=== PATIENT | male | born 1975 | race Caucasian/White ===

== ENCOUNTER 2024-02-14 13:07 | Outpatient (AMB) | payer OTHER, SELFPAY ==
--- NOTE | 2024-02-14 13:08 | A.OFFVIS_ITS ---
Vital Signs 02/14/24 13:15 Height 6 ft 2 in Weight 324 lb BMI 41.6 Pulse 92 Pulse Source Pulse Oximeter Temp 97.9 F Temp Source Oral Pulse Oximetry (%) 97 Oxygen Delivery Method Room Air Intake Visit Reasons: REFF.DR Yeboah,Positive QuantiFERON Allergies No Known Allergies Allergy (Verified 02/14/24 13:16) HPI HPI REFF.DR Yeboah,Positive QuantiFERON: Details: He has colitis. He has been on mesalamine. Dr Yeboah of is going to start him on biologics. He has positive interferon tubercular test. He has never had tuberculosis and reports negative skin test in past. 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 CXR reported negative. He has no hemoptysis,weight loss,foreign travel or exposure and no lymphadenopathy or fevers. [facility] Medical History Positive QuantiFERON-TB Gold test Review of Systems Const All systems reviewed & are unremarkable except as noted in HPI and below Physical Exam Vital Signs: Last Vital Signs Temp 97.9 F 02/14/24 13:15 Pulse 92 02/14/24 13:15 Pulse Ox 97 02/14/24 13:15 Oxygen Delivery Method Room Air 02/14/24 13:15 BMI result Body Mass Index 41.6 Const General: cooperative Orientation/consciousness: patient oriented x3 HEENT Head: Yes normal to inspection Mouth: Normal oral and palatal mucosa present Eyes General: appearance normal, both eyes and all related structures Pupils: Equal, round and reactive pupils present Resp Effort & Inspection: normal respiratory effort Cardio Rate: regular rate Rhythm: regular rhythm GI Palpation (GI): Soft to palpation and nontender General: Yes no CVA tenderness Back/Spine/Pelvis Back: no CVA tenderness Skin General skin exam: no rashes or lesions noted Neuro General: patient oriented x3 Cranial nerves: Yes CN's II-XII intact bilaterally and Yes Equal, round and reactive pupils present Extrem General: Yes normal to inspection Psych Appearance: grossly normal Assessment & Plan Assessment & Plan (1) Positive QuantiFERON-TB Gold test: Comment: Positive tubercular interferon blood test. He has no risk and reported past negative TB skin test and CXR. Code(s): R76.12 - Nonspecific reaction to cell mediated immunity measurement of gamma interferon antigen response without active tuberculosis Category: Medical Plan: I did recheck T spot blood test today which is negative. No contraindication seen to antibody therapy as likely false positive prior test. As with any patients watch for symptoms of infection with fever or lymphadenopathy or hemoptysis but as of now no contraindication seen and false positive tests are not uncommon. Orders: Orders T Spot TB 02/14/24 R76.12 - Nonspecific reaction to cell mediated immunity measurement of gamma interferon antigen response without active tuberculosis HIV Ab/Ag 02/14/24 R76.12 - Nonspecific reaction to cell mediated immunity measurement of gamma interferon antigen response without active tuberculosis Hepatitis C Antibody 02/14/24 R76.12 - Nonspecific reaction to cell mediated immunity measurement of gamma interferon antigen response without active tuberculosis Coding Level of Care Code New Pt Level 3 (93107) Diagnoses Positive QuantiFERON-TB Gold test R76.12
--- OUTSIDE RECORDS SUMMARY | 2024-02-14 13:08 | XMS_ITS ---
Author Organization [facility] Address [address] [place], [place] [id number] Care Team Providers Care Fast Food Supervisor Name Role Phone Vikas Victoria Primary Care Provider Unavailable Renard Casillas Unavailable [phone] Ankur Nunez Unavailable Unavailable Ayesha Silva Unavailable [phone] ALLERGIES No Known Allergies REASON FOR VISIT 3 Month RUBEN Follow up W/ E&C- non compliant MEDICATIONS Medication SIG (Take, Route, Frequency, Duration) Notes Start Date End Date Status hydrOXYzine HCl 10 MG 1 tablet as needed Orally Once a day Active FLUoxetine HCl 10 MG 1 capsule Orally Once a day for 90 days Active Albuterol Sulfate HFA 108 (90 Base) MCG/ACT 1 puff as needed Inhalation every 4 hrs for 30 days Active Mesalamine ER 0.375 GM Oral for 90 4 caps daily Active ARIPiprazole 30 MG 1 tablet Orally Once a day for 90 days Active PROzac 40 MG 1 capsule in the morning 10 at night Orally Once a day total 50 mg Active oxyBUTYnin Chloride ER 10 MG 1 tablet Orally Once a day Active LORazepam 2 MG 1 tablet at bedtime as needed Orally Once a day as needed Active Rosuvastatin Calcium 20 MG 1 tablet Orally Once a day for 30 day(s) Active CPAP* DX: RUBEN G47.33 as directed SETTINGS: 16cm/H2O SIG DATE: During sleep nightly for the treatment of sleep apnea for lifetime Active Atorvastatin Calcium 20 MG 1 tablet Orally Once a day restarting 10/12/2022 Active VITAL SIGNS Weight 315 lbs 01/24/2024 Blood pressure systolic 100 mm Hg 01/24/20 24 Blood pressure diastolic 78 mm Hg 024 Heart Rate 70 /min 01/24/2024 Respiratory Rate 16 /min 01/24/2024 Height 68 in 01/24/2024 BMI 47.89 kg/m2 01/24/2024 Encounters Encounter Location Date Provider Diagnosis [facility] [address] [place] [address] 01/24/2024 Ayesha Silva Obstructive sleep apnea (adult) (pediatric) G47.33 ; Hypersomnia G47.10 ; Other obesity due to excess calories E66.09 ; Mild intermittent asthma, unspecified whether complicated J45.20 and Shortness of breath R06.02 ASSESSMENTS Encounter Date Diagnosis Assessment Notes Treatment Notes Treatment Clinical Notes 01/24/2024 Obstructive sleep apnea (adult) (pediatric) (ICD-10 - G47.33) We discussed the risks involved in untreated RUBEN. He understands. We discussed strategies to help him remember to use CPAP every night 01/24/2024 Hypersomnia (ICD-10 - G47.10) Should improve with management of RUBEN. Advised not to drive when sleepy . 01/24/2024 Other obesity due to excess calories (ICD-10 - E66.09) The importance of weight control/loss was emphasized. This improves (and occasionally cures) sleep apnea. It also benefits other health concerns. Vice Versa, weight gain will worsen sleep apnea. 01/24/2024 Mild intermittent asthma, unspecified whether complicated (ICD-10 - J45.20) Continue albuterol prn 01/24/2024 Shortness of breath (ICD-10 - R06.02) As above PLAN OF TREATMENT Medication Medication Name Sig Start Date Stop Date Notes Albuterol Sulfate HFA 108 (9 0 Base) MCG/ACT 1 puff as needed Inhalation every 4 hrs for 30 days CPAP* DX: RUBEN G47.33 as directed SETTING S: 16cm/H2O SIG DATE: During sleep nightly for the treatment of sleep apnea for lifetime Treatment Notes Assessment Notes Obstructive sleep apnea (adult) (pediatr ic) We discussed the risks involved in untreated RUBEN. He understands. We discussed strategies to help him remember to use CPAP every night Hypersomnia Should improve with management of RUBEN. Advised not to drive when sleepy . Other obesity due to excess calories The importance of weight control/loss was emphasized. This improves (and occasionally cures) sleep apnea. It also benefits other health concerns. Vice Versa, weight gain will worsen sleep apnea. Mild intermittent asthma, un specified whether complicated Continue albuterol prn Shortness of breath As above Next Appt Details Follow Up: 2-3 weeks with CP AP, Reason: Provider Name:Ayesha de la rosa, 02/28/2024 03:00:00 PM, [address] [place], [address], Progress Notes * Denny STANTONDOB: [birth year] (48 yo M)Acc No.[id number]:01/24/2024 Patient:??STEPHEN Denny Provider:??Ayesha Silva NP :1975?Age:48 Y?Sex:Rosemarie le Date:01/24/2024 Address:[address] [place], [place] [id number] Pcp:Samia Erickson Subjective: * Chief Complaints: * ?3 Month RUBEN Follow up W/ E&C- non compliant * HPI: ?Obstructive Sleep Apnea:?48 year old male presents with c/o Obstructive sleep apnea??Diagnosed in 2014 but had his machine taken away due to non compliance in the past. Today he's here for a follow up and still has not used his machine in several months. He has tried a couple different masks and finds them comfortable but admits that he forgets to put it on most nights. At last visit I ordered him the airfit f30i which he finds comfortable. I adjusted the pressure at last visit but he has not tried it yet.?Symptoms including??snoring, daytime somnolence, awakening not feeling refreshed in the morning.??Naps??are denied.??The patient usually goes to bed at??9-10 PM and usually arises at 6-7 AM, he wakes up 1-2 times per night to use the bathroom, naps are denied.??The Nichols score today??completed by the patient is 0.??The patient denies??anxiety, excess light in the room, excess noise in the bedroom, knowledge of periodic leg movements during sleep, seizures during sleep, sleep talking, sleep walking.?Nichols sleepiness scale:?Sitting and reading??0.??Watching TV??0.??Sitting inactive in a public place??0.??Being a passenger in car longer than 1 hour??0.??Lying down in the afternoon??0.??Sitting and Talking with someone??0.??Sitting quietly after lunch (no alcohol)??0.??Stopped for a few minutes in traffic while driving??0.??Total??0.?? * ROS:?Follow up ROS 2:?General??No fever, chills, sweats, No excessive fatigue, Appetite good, weight stable.??EENT??No change in vision, No ocular discharge or pruritis, No change in hearing, Sense of smell/taste intact, No sore throat.??Cardiac??No chest pain, pressure or tightness, No extremity edema, No lightheadedness, No orthopnea or PND.??Respiratory??Per HPI.??GI??No abdominal pain, nausea, vomiting or diarrhea. No sx of KELLY.??Musculoskeletal??No acute arthralgias or myalgias.??Dermatologic??No rash, eczema or urticaria.??Neurologic??No headache or dizziness.??Psychiatric??No complaint of depression or anxiety.??Hematology/Lymph??No swollen glands, No easy bruising.??Actively smoking??No.?All other 12 systems reviewed and negative other than above. * Medical History:?? * Surgical History:??Tonsillec jewel/Adenoidectomy * Hospitalization/Major Diagno stic Procedure:?? * Family History:??Father: dec eased, Emphysema, diagnosed with Chronic obstructive pulmonary disease (COPD).??Mother: alive, unknown, diagnosed with Unknown Medical History.??Siblings: alive, diagnosed with Diabetes mellitus.?? Positive for diabetes mellitus. Half brother and half sister. * Social History:??Marital sta tus: Single, Single, Lives independently,. Children: None. Siblings: Brother, Sister,. Occupation: [employer]. Tobacco??Smoking History:??nonsmoker,??Additional Findings: Tobacco Non-User??Does not use smokeless tobacco.??Alcohol: None,. * Medications:??TakingAlbutero l Sulfate HFA 108 (90 Base) MCG/ACT Aerosol Solution 1 puff as needed Inhalation every 4 hrs Atorvastatin Calcium 20 MG Tablet 1 tablet Orally Once a day , Notes to Pharmacist: restarting 10/12/2022LORazepam 2 MG Tablet 1 tablet at bedtime as needed Orally Once a day , Notes to Pharmacist: as neededRosuvastatin Calcium 20 MG Tablet 1 tablet Orally Once a day PROzac 40 MG Capsule 1 capsule in the morning 10 at night Orally Once a day , Notes to Pharmacist: total 50 mgoxyBUTYnin Chloride ER 10 MG Tablet Extended Release 24 Hour 1 tablet Orally Once a day hydrOXYzine HCl 10 MG Tablet 1 tablet as needed Orally Once a day FLUoxetine HCl 10 MG Capsule 1 capsule Orally Once a day Mesalamine ER 0.375 GM Capsule Extended Release 24 Hour Oral , Notes to Pharmacist: 4 caps dailyARIPiprazole 30 MG Tablet 1 tablet Orally Once a day Medication List reviewed and reconciled with the patientTaking Albuterol Sulfate HFA 108 (90 Base) MCG/ACT Aerosol Solution 1 puff as needed Inhalation every 4 hrs Taking Atorvastatin Calcium 20 MG Tablet 1 tablet Orally Once a day , Notes to Pharmacist: restarting 10/12/2022Taking LORazepam 2 MG Tablet 1 tablet at bedtime as needed Orally Once a day , Notes to Pharmacist: as neededTaking Rosuvastatin Calcium 20 MG Tablet 1 tablet Orally Once a day Taking PROzac 40 MG Capsule 1 capsule in the morning 10 at night Orally Once a day , Notes to Pharmacist: total 50 mgTaking oxyBUTYnin Chloride ER 10 MG Tablet Extended Release 24 Hour 1 tablet Orally Once a day Taking hydrOXYzine HCl 10 MG Tablet 1 tablet as needed Orally Once a day Taking FLUoxetine HCl 10 MG Capsule 1 capsule Orally Once a day Taking Mesalamine ER 0.375 GM Capsule Extended Release 24 Hour Oral , Notes to Pharmacist: 4 caps dailyTaking ARIPiprazole 30 MG Tablet 1 tablet Orally Once a day Medication List reviewed and reconciled with the patient * Allergies:??N.K.D.A.no[Aller gies Verified] Objective: * Vitals:??Wt: 315, BP:100/78, HR: 70, RR: 16, O2 sat: 95%RA, Ht: 68, BMI:47.89. * Examination: ?General Physical Exam: ?General Appearance:??Alert and oriented x 3, in no acute distress.??Eyes??EOMI, PERRL, Conjunctiva not injected, Sclera not icteric.??Nose??No significant mucosal congestion (normal mucosa). No nasal discharge. No nasal polyps seen.??Oral cavity??No significant abnormalities appreciated.??The hypopharynx??Normal in appearance; no erythema or exudate; , Mallampati Class IV.??Neck??Supple, JVP is normal, no masses, thyroid is normal.??Chest??Normal shape and expansion with respiration.??Lungs??Respiratory rate is normal,?Breath sounds are clear bilaterally, but diminished globally.??Heart:??Normal rate, regular rhythm, Normal S1, normal S2, no murmurs, rub, gallop.??Extremities??No digital clubbing, acrocyanosis or peripheral edema.??Lymph??No cervical adenopathy.??Skin:??Warm and dry, No rash on partial skin exam.??Neuro:??A & O x 3, Grossly nonfocal motor and sensory exam.?Data: ?Pulmonary Function Tests??PFT completed 08/21/2023 showed FVC 4.26L (153% pred), FEV1 3.61L (159%pred), FEV1/FVC 85%, there was good bronchodilator response.??PSG?? 10/10/13 - Sleep Efficiency 87.2%. Sleep onset latency 25 min. REM Sleep onset latency 370 min. Sleep Stages: Stage 1 - 18.1%, Stage 2 - 70.4%, Slow Wave - 5.2%, REM - 6.3%. Overall AHI 62.4/hr. Overall RDI 69/hr. Oximetry - low SpO2 78%, SpO2 < 88% for 65.2%. ?Home sleep study from 09/02/14 shows mild to moderate, positional sleep apnea with an AHI of 11/hr, RDI of 23/hr and an Sp02 Valeriano of 83.9% with a mean Sp02 of 93.6%. Snoring was recorded 32% of the time. ?PSG from 05/24/15 was personally reviewed by me and shows moderate RUBEN with AHI of 17 ?PSG split night completed 04/21/18 showed optimal pressure at 16cm/H2O.?For today's visit I spent 30 minutes for preparation, reviewing of the record and face to face contact. Assessment: * Assessment: 1.??Obstructive sleep apnea (adult) (pediatric) - G47.33 (Primary)??2.??Hypersomnia - G47.10??3.??Other obesity due to excess calories - E66.09??4.??Mild intermittent asthma, unspecified whether complicated - J45.20??5.??Shortness of breath - R06.02?? Plan: * Treatment: 2.??Hypersomnia?? Notes:Should improve with management of RUBEN. Advised not to drive when sleepy .? 3.??Other obesity due to exc ess calories?? Notes:The importance of weight control/loss was emphasized. This improves (and occasionally cures) sleep apnea. It also benefits other health concerns. Vice Versa, weight gain will worsen sleep apnea.? 4.??Mild intermittent asthma , unspecified whether complicated?? Notes: Continue albuterol prn? 5.??Shortness of breath?? Continue Albuterol Sulfate HFA Aerosol Solution, 108 (90 Base) MCG/ACT, 1 puff as needed, Inhalation, every 4 hrs, 30 days, 1, Refills 5.? Notes: As above? * Procedure Codes:?? * Preventive Medicine:?Counseling:??DIET -??Above Normal BMI Follow-up??Giving encouragement to exercise,??BMI Management??Yes.?? * Follow Up:??2-3 weeks with C YOVANI * Images: * Sign off status: Completed true * Provider:??Ayesha Silva NP Date:??01/14 History and Physical Notes * HPI (History of Present Illness) Category Sub-Category Detail Notes Obstructive Sleep Apnea Symptoms including snori ng, daytime somnolence, awakening not feeling refreshed in the morning The Nichols score today completed by the patient is 0 The patient usually goes to bed at 9-10 PM and usually arises at 6-7 AM, he wakes up 1-2 times per night to use the bathroom, naps are denied The patient denies anxiety, excess ligh t in the room, excess noise in the bedroom, knowledge of periodic leg movements during sleep, seizures during sleep, sleep talking, sleep walking Obstructive sleep apnea Diagnosed in but had his machine taken away due to non compliance in the past. Today he's here for a follow up and still has not used his machine in several months. He has tried a couple different masks and finds them comfortable but admits that he forgets to put it on most nights. At last visit I ordered him the airfit f30i which he finds comfortable. I adjusted the pressure at last visit but he has not tried it yet Naps are denied Nichols sleepiness scale Sitting and reading 0 Watching TV 0 Sitting inactive in a public place 0 Being a passenger in car longer than 1 h our 0 Lying down in the afternoon 0 Sitting and Talking with someone 0 Sitting quietly after lunch (no alcohol) 0 Stopped for a few minutes in traffic whi le driving 0 Total 0 Examination Category Sub-Category Detail Notes General Physical Exam Eyes EOMI, PERR L, Conjunctiva not injected, Sclera not icteric Neck Supple, JVP is franco l, no masses, thyroid is normal Heart: Normal rate, regular rhythm, Normal S1, normal S2, no murmurs, rub, gallop Lungs Respiratory rate is normal, Breath sounds are clear bilaterally, but diminished globally General Appearance: Alert and oriented x 3, in no acute distress Oral cavity No significant abnor malities appreciated Chest Normal shape and exp ansion with respiration Extremities No digital clubbing, acrocyanosis or peripheral edema Ears Nose No significant mucos al congestion (normal mucosa). No nasal discharge. No nasal polyps seen The hypopharynx Normal in appearance ; no erythema or exudate; , Mallampati Class IV Sinuses Skin: Warm and dry, No steevn h on partial skin exam Neuro: A & O x 3, Grossly n onfocal motor and sensory exam Vascular: Abdomen Lymph No cervical adenopat hy Data Pulmonary Function Tests PFT com pleted 08/21/2023 showed FVC 4.26L (153% pred), FEV1 3.61L (159%pred), FEV1/FVC 85%, there was good bronchodilator response PSG 10/10/13 - Sleep Efficiency 87.2%. Sleep onset latency 25 min. REM Sleep onset latency 370 min. Sleep Stages: Stage 1 - 18.1%, Stage 2 - 70.4%, Slow Wave - 5.2%, REM - 6.3%. Overall AHI 62.4/hr. Overall RDI 69/hr. Oximetry - low SpO2 78%, SpO2 < 88% for 65.2%. Home sleep study from 09/02/14 shows mild to moderate, positional sleep apnea with an AHI of 11/hr, RDI of 23/hr and an Sp02 Valeriano of 83.9% with a mean Sp02 of 93.6%. Snoring was recorded 32% of the time. PSG from 05/24/15 was personally reviewed by me and shows moderate RUBEN with AHI of 17 PSG split night completed 04/21/18 showed optimal pressure at 16cm/H2O
--- OUTSIDE RECORDS SUMMARY | 2024-02-14 13:08 | XMS_ITS ---
Author Organization [facility] Address [address] [place], [place] [id number] Care Team Providers Care Scaffold Erector Name Role Phone Vikas Victoria Primary Care Provider Unavailable Renard Casillas Unavailable [phone] Ankur Nunez Unavailable Unavailable REASON FOR VISIT Follow up Encounters Encounter Location Date Provider Diagnosis [facility] [address] [place] [address] 01/24/2024 Renard Katiei PLAN OF TREATMENT Next Appt Details Provider Name:Ayesha de la rosa, 02/28/2024 03:00:00 PM, [address] [place], [address], Progress Notes * Denny STANTONDOB: [birth year] (48 yo M)Acc No.[id number]:01/24/2024 Patient:??Denny STANTON :1975?Age:48 Y?Sex:Radha rodriguez Address:[address] [place] [address], [address] * true * Date:??
--- OUTSIDE RECORDS SUMMARY | 2024-02-14 13:09 | XMS_ITS | Patient Health Record ---
Author Organization [facility] Address [address] [place], [place] [address] Care Team Providers Care Cement Despatch Operator Name Role Phone Vikas Victoria Primary Care Provider Unavailable Renard Casillas Unavailable [phone] Ankur Nunez Unavailable Unavailable Ayesha Silva Unavailable [phone] ALLERGIES No Known Allergies REASON FOR REFERRAL No Information MEDICATIONS Medication SIG (Take, Route, Frequency, Duration) [...] Once a day for 30 day(s) Active Atorvastatin Calcium 20 MG 1 tablet Orally Once a day restarting 10/12/2022 Active Albuterol Sulfate HFA 108 (90 Base) MCG/ACT 1 puff as needed Inhalation every 4 hrs for 30 days Active CPAP* DX: RUBEN G47.33 as directed SETTINGS: 16cm/H2O SIG DATE: During sleep nightly for the treatment of sleep apnea for lifetime Active Mesalamine ER 0.375 GM Oral for 90 4 caps daily Active ARIPiprazole 30 MG 1 tablet Orally Once a day for 90 days Active IMMUNIZATIONS Vaccine Route Administration Date Status Comme nts COVID-19 Pfizer Unknown 12/02/2020 Administered COVID-19 Pfizer Unknown 12/21/2020 Administered Flucelvax Quadrivelant (Commerical) Unknown 04/06/2018 Administered SOCIAL HISTORY Sex Assigned At : Social History Observation Description Sex Assigned At Unknown PROBLEMS Problem Type ICD Code Onset Dates Problem Status W/U Status Risk SNOMED Code Notes Problem Obstructive sleep apnea (adult) (pediatric) (G47.33) Active confirmed Obstructive sle ep apnea syndrome (01450008) Problem Other obesity due to excess calories (E66.09) Active confirmed Obesity due to excess calories (539520658) Problem Hypersomnia (G47.10) Active confirmed 69155610 Problem Nocturnal hypoxemia (G47.34) Active confirmed 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 (906488885) Problem Mild intermittent asthma, unspecified whether complicated (J45.20) Active confirmed 725850977 VITAL SIGNS Heart Rate 70 /min 01/24/2024 Respiratory Rate 16 /min 01/24/2024 Blood pressure diastolic 78 mm Hg 01/24/2024 Height 68 in 01/24/2024 Blood pressure systolic 100 mm Hg 01/24/2024 Weight 315 lbs 01/24/2024 BMI 47.89 kg/m2 01/24/2024 Encounters Encounter Location Date Provider Diagnosis [facility] [address] [place] [address] 05/11/2023 Ayesha Silva Shortness of breath R06.02 [facility] [address] [facility] [address] [place], [place] [phone] 07/18/2023 Renard Agthuani [facility] [address] [place] [address] 07/19/2023 Ayesha Silva [facility] [address] [place] [address] 01/24/2024 Renard Aghassi [facility] [address] [place] [address] 06/07/2023 Ayesha Silva [facility] [address] [place] [address] 07/19/2023 Ayesha Silva [facility] [address] [place] [address] 05/10/2023 Ayesha Silva Obstructive sleep apnea (adult) (pediatric) G47.33 ; Hypersomnia G47.10 ; Other obesity due to excess calories E66.09 and Shortness of breath R06.02 [facility] [address] [place] [address] 10/13/2023 Ayesha Silva Obstructive sleep apnea (adult) (pediatric) G47.33 ; Hypersomnia G47.10 ; Other obesity due to excess calories E66.09 ; Mild intermittent asthma, unspecified whether complicated J45.20 and Shortness of breath R06.02 [facility] [address] [place] [address] 01/24/2024 Ayesha Silva Obstructive sleep apnea (adult) (pediatric) G47.33 ; Hypersomnia G47.10 ; Other obesity due to excess calories E66.09 ; Mild intermittent asthma, unspecified whether complicated J45.20 and Shortness of breath R06.02 ASSESSMENTS Encounter Date Diagnosis Assessment Notes Treatment Notes Treatment Clinical Notes 05/10/2023 Hypersomnia (ICD-10 - G47.10) Should improve with management of RUBEN. Advised not to drive when sleepy . 05/11/2023 Shortness of breath (ICD-10 - R06.02) 10/13/2023 Obstructive sleep apnea (adult) (pediatric) (ICD-10 - G47.33) We discussed the risks involved in untreated RUBEN. He understands. We discussed strategies to help him remember to use CPAP every night. I will send an order to lower the pressure so this is more comfortable for him 05/10/2023 Obstructive sleep apnea (adult) (pediatric) (ICD-10 - G47.33) We discussed the risks involved in untreated RUBEN. He understands. We discussed strategies to help him remember to use CPAP every night. I have shown him how to wear his mask and how to tighten the straps 10/13/2023 Hypersomnia (ICD-10 - G47.10) Should improve with management of RUBEN. Advised not to drive when sleepy . 01/24/2024 Obstructive sleep apnea (adult) (pediatric) (ICD-10 - G47.33) We discussed the risks involved in untreated RUBEN. He understands. We discussed strategies to help him remember to use CPAP every night 05/10/2023 Other obesity due to excess calories (ICD-10 - E66.09) The importance of weight control/loss was emphasized. This improves (and occasionally cures) sleep apnea. It also benefits other health concerns. Vice Versa, weight gain will worsen sleep apnea. 10/13/2023 Other obesity due to excess calories (ICD-10 - E66.09) The importance of weight control/loss was emphasized. This improves (and occasionally cures) sleep apnea. It also benefits other health concerns. Vice Versa, weight gain will worsen sleep apnea. 01/24/2024 Hypersomnia (ICD-10 - G47.10) Should improve with management of RUBEN. Advised not to drive when sleepy . 01/24/2024 Other obesity due to excess calories (ICD-10 - E66.09) The importance of weight control/loss was emphasized. This improves (and occasionally cures) sleep apnea. It also benefits other health concerns. Vice Versa, weight gain will worsen sleep apnea. 05/10/2023 Shortness of breath (ICD-10 - R06.02) Will start albuterol PRN and obtain PFT 10/13/2023 Mild intermittent asthma, unspecified whether complicated (ICD-10 - J45.20) Continue albuterol prn 01/24/2024 Mild intermittent asthma, unspecified whether complicated (ICD-10 - J45.20) Continue albuterol prn 10/13/2023 Shortness of breath (ICD-10 - R06.02) As above 01/24/2024 Shortness of breath (ICD-10 - R06.02) As above PLAN OF TREATMENT Pending Test Test Name Order Date SLEEP STUDY-SPLIT 05/22/2015 Sleep Home Sleep Testing 08/22/2014 Future Test Test Name Order Date SLEEP STUDY-SPLIT 04/06/2018 PFT Complete with Methacholi ne Spirometry (Pre/Post), Lung Volumes, Body Box, DLCO 05/10/2023 Next Appt Details Provider Name:Ayesha de la rosa, 02/28/2024 03:00:00 PM, [address] [facility], [place], [address], Insurance Providers Payer Name Payer Address Payer Phone Subscriber Number Group Number Insured Name Patient Relationship to Insured Coverage Start Date Coverage End Date [employer] [address] [place] [phone] [id number] Denny Stanton Self - patient is the insured Medicaid [address] [place] [phone] [id number] Denny Stanton Self - patient is the insured MEDICAL (GENERAL) HISTORY Medical History History ICD Code Obstructive sleep apnea Depression Anxiety Bipolar disorder Mental retardation Obesity Hyperlipidemia Surgical History Surgery Date(Month/Year) Tonsillectomy/Adenoidectomy
--- OUTSIDE RECORDS SUMMARY | 2024-02-14 13:09 | XMS_ITS ---
Author Organization [facility] Address [address] [place], [place] [address] Care Team Providers Care Parent Aide Name Role Phone Vikas Victoria Primary Care Provider Unavailable Renard Casillas Unavailable [phone] Ankur Nunez Unavailable Unavailable Ayesha Silva Unavailable [phone] ALLERGIES No Known Allergies REASON FOR VISIT PFT Follow Up MEDICATIONS Medication SIG (Take, Route, Frequency, Duration) Notes Start Date End Date Status FLUoxetine HCl 10 MG Oral for 90 Active Mesalamine ER 0.375 GM Oral for 90 4 caps daily Active ARIPiprazole 30 MG Oral for 90 Active CPAP* DX: RUBEN G47.33 as directed SETTINGS: 16cm/H2O SIG DATE: During sleep nightly for the treatment of sleep apnea for lifetime Active Albuterol Sulfate HFA 108 (90 Base) MCG/ACT 1 puff as needed Inhalation every 4 hrs for 30 days Active Rosuvastatin Calcium 20 MG 1 tablet Orally Once a day for 30 day(s) Active PROzac 40 MG 1 capsule in the morning 10 at night Orally Once a day total 50 mg Active oxyBUTYnin Chloride ER 10 MG 1 tablet Orally Once a day Active hydrOXYzine HCl 10 MG Orally Active LORazepam 2 MG 1 tablet at bedtime as needed Orally Once a day as needed Active Atorvastatin Calcium 20 MG 1 tablet Orally Once a day restarting 10/12/2022 Active PROBLEMS Problem Type ICD Code Onset Dates Problem Status W/U Status Risk SNOMED Code Notes Problem Mild intermittent asthma, unspecified whether complicated (J45.20) Active confirmed 096583463 VITAL SIGNS Weight 315 lbs 10/13/2023 Blood pressure systolic 90 mm Hg 10/13/19 24 Blood pressure diastolic 66 mm Hg 024 Heart Rate 84 /min 10/13/2023 Respiratory Rate 16 /min 10/13/2023 Height 68 in 10/13/2023 BMI 47.89 kg/m2 10/13/2023 Encounters Encounter Location Date Provider Diagnosis [facility] [address] [place] [address] 10/13/2023 Ayesha Silva Obstructive sleep apnea (adult) (pediatric) G47.33 ; Hypersomnia G47.10 ; Other obesity due to excess calories E66.09 ; Mild intermittent asthma, unspecified whether complicated J45.20 and Shortness of breath R06.02 ASSESSMENTS Encounter Date Diagnosis Assessment Notes Treatment Notes Treatment Clinical Notes 10/13/2023 Obstructive sleep apnea (adult) (pediatric) (ICD-10 - G47.33) We discussed the risks involved in untreated RUBEN. He understands. We discussed strategies to help him remember to use CPAP every night. I will send an order to lower the pressure so this is more comfortable for him 10/13/2023 Hypersomnia (ICD-10 - G47.10) Should improve with management of RUBEN. Advised not to drive when sleepy . 10/13/2023 Other obesity due to excess calories (ICD-10 - E66.09) The importance of weight control/loss was emphasized. This improves (and occasionally cures) sleep apnea. It also benefits other health concerns. Vice Versa, weight gain will worsen sleep apnea. 10/13/2023 Mild intermittent asthma, unspecified whether complicated (ICD-10 - J45.20) Continue albuterol prn 10/13/2023 Shortness of breath (ICD-10 - R06.02) As above PLAN OF TREATMENT Medication Medication Name Sig Start Date Stop Date Notes CPAP* DX: RUBEN G47.33 as directed SETTING S: 16cm/H2O SIG DATE: During sleep nightly for the treatment of sleep apnea for lifetime Albuterol Sulfate HFA 108 (9 0 Base) MCG/ACT 1 puff as needed Inhalation every 4 hrs for 30 days Treatment Notes Assessment Notes Obstructive sleep apnea (adult) (pediatr ic) We discussed the risks involved in untreated RUBEN. He understands. We discussed strategies to help him remember to use CPAP every night. I will send an order to lower the pressure so this is more comfortable for him Hypersomnia Should improve with management of RUBEN. [...] As above Next Appt Details Follow Up: change CPAP press ure to 5-16cm/H2O, f/u in 3 months epworth & compliance, Reason: Provider Name:Ayesha de la rosa, 02/28/2024 03:00:00 PM, [address] [place], [address], Progress Notes * STEPHEN DennyDOB: [birth year] (48 yo M)Acc No.[id number]:10/13/2023 Patient:??STEPHEN Denny Provider:??Ayesha Silva NP :1975?Age:48 Y?Sex:Ma le Date:10/13/2023 Address:[address] [place], [place] [phone] Pcp:Samia Erickson Subjective: * Chief Complaints: * ?PFT Follow Up * HPI: ?Pulmonary:?48 year old male presents with c/o Shortness of breath??Denny is here today for a follow up. Since last visit he went for a PFT because he was having increased shortness of breath with activity. He has been walking with his health aid and tells me that he becomes very short of breath and wheezy almost every day.? He takes 5-10 mins to recover. Denies any cough. I started him on albuterol at last visit and uses this once a day with exercise and he finds this helpful.?Denies any fever, chills, chest pain or hemoptysis ?.?Obstructive Sleep Apnea:?c/o Obstructive sleep apnea??Diagnosed in 2015 but recently had his machine taken away due to non compliance. Today he's here for a follow up and still has not used his machine in several months. He has tried a couple different masks and finds them comfortable but admits that he forgets to put it on most nights. At last visit I ordered him the airfit f30i which he finds comfortable. He now feels the air pressure is too high.?.?Symptoms including??snoring, daytime somnolence, awakening not feeling refreshed in the morning.??Naps??are denied.??The patient usually goes to bed at??9-10 PM and usually arises at 6-7 AM, he wakes up 1-2 times per night to use the bathroom, naps are denied.??The [place] score today??completed by the patient is 0.??The patient denies??anxiety, excess light in the room, excess noise in the bedroom, knowledge of periodic leg movements during sleep, seizures during sleep, sleep talking, sleep walking.?[place] sleepiness scale:?Sitting and reading??0 would never doze or sleep,?.??Watching TV??0 would never doze or sleep.??Sitting inactive in a public place??0 would never doze or sleep.??Being a passenger in car longer than 1 hour??0 would never doze or sleep.??Lying down in the afternoon??0 would never doze or sleep.??Sitting and Talking with someone??0 would never doze or sleep.??Sitting quietly after lunch (no alcohol)??0 would never doze or sleep.??Stopped for a few minutes in traffic while driving??0 would never doze or sleep.??Total??0.?? * ROS:?Follow up ROS 2:?General??No fever, chills, [...] independently,. Children: None. Siblings: Brother, Sister,. 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 Tobacco??Smoking History:??nonsmoker,??Additional Findings: Tobacco Non-User??Does not use smokeless tobacco.??Alcohol: None,. * Medications:??TakingAtorvast atin Calcium 20 MG Tablet 1 tablet Orally [...] a day hydrOXYzine HCl 10 MG Tablet Orally FLUoxetine HCl 10 MG Capsule Oral Mesalamine ER 0.375 GM Capsule Extended Release 24 Hour Oral , Notes to Pharmacist: 4 caps dailyARIPiprazole 30 MG Tablet Oral Albuterol Sulfate HFA 108 (90 Base) MCG/ACT Aerosol Solution 1 puff as needed Inhalation every 4 hrs CPAP* DX: RUBEN G47.33 Airsense 10 Auto, heated hose, heated humidifier, compliance, supplies: filter, cushion, headgear, humidifier tub as directed SETTINGS: 16cm/H2O SIG DATE: During sleep nightly for the treatment of sleep apnea Medication List reviewed and reconciled with the patientTaking Atorvastatin Calcium 20 MG Tablet 1 tablet [...] day Taking hydrOXYzine HCl 10 MG Tablet Orally Taking FLUoxetine HCl 10 MG Capsule Oral Taking Mesalamine ER 0.375 GM Capsule Extended Release 24 Hour Oral , Notes to Pharmacist: 4 caps dailyTaking ARIPiprazole 30 MG Tablet Oral Taking Albuterol Sulfate HFA 108 (90 Base) MCG/ACT Aerosol Solution 1 puff as needed Inhalation every 4 hrs Taking CPAP* DX: RUBEN G47.33 Airsense 10 Auto, heated hose, heated humidifier, compliance, supplies: filter, cushion, headgear, humidifier tub as directed SETTINGS: 16cm/H2O SIG DATE: During sleep nightly for the treatment of sleep apnea Medication List reviewed and reconciled with the patient * Allergies:??N.K.D.A.no[Aller gies Verified] Objective: * Vitals:??Wt: 315, BP:90/66, HR: 84, RR: 16, O2 sat: 93%RA, Ht: 68, BMI:47.89. * Examination: ?General Physical [...] Notes: As above? * Procedure Codes:?? * Follow Up:??change CPAP pres sure to 5-16cm/H2O, f/u in 3 months epworth & compliance * Images: * Sign off status: Completed true * Provider:??Ayesha Silva NP Date:??09/15 History and Physical Notes * HPI (History of Present Illness) Category Sub-Category Detail Notes Obstructive Sleep Apnea Symptoms including snori ng, daytime somnolence, awakening not feeling refreshed in the morning The Mittie score today completed by the patient is [...] sleep walking Obstructive sleep apnea Diagnosed in 5 but recently had his machine taken away due to non compliance. Today he's here for a follow up and still has not used his machine in several months. He has tried a couple different masks and finds them comfortable but admits that he forgets to put it on most nights. At last visit I ordered him the airfit f30i which he finds comfortable. He now feels the air pressure is too high. Naps are denied Mittie sleepiness scale Sitting and reading 0 w ould never doze or sleep, Watching TV 0 would never doze o r sleep Sitting inactive in a public place 0 wou ld never doze or sleep Being a passenger in car longer than 1 h our 0 would never doze or sleep Lying down in the afternoon 0 would neve r doze or sleep Sitting and Talking with someone 0 would never doze or sleep Sitting quietly after lunch (no alcohol) 0 would never doze or sleep Stopped for a few minutes in traffic whi le driving 0 would never doze or sleep Total 0 Pulmonary Shortness of breath Denny is here today for a follow up. Since last visit he went for a PFT because he was having increased shortness of breath with activity. He has been walking with his health aid and tells me that he becomes very short of breath and wheezy almost every day. He takes 5-10 mins to recover. Denies any cough. I started him on albuterol at last visit and uses this once a day with exercise and he finds this helpful. Denies any fever, chills, chest pain or hemoptysis Examination Category Sub-Category Detail Notes General Physical [...] IV Sinuses Skin: Warm and dry, No steven h on partial skin exam Neuro: A [...]
[2024-02-14 13:15] VITALS: PULSE 92; TEMP 36.6; O2SAT 97; BMI 41.6
== END 2024-02-14 13:39 | disposition home or self-care (01) ==
LOC: HO.HID 13:07
PROVIDERS: Visit Provider Internal Medicine
DX: R76.12 Nonspecific reaction to cell mediated immunity measurement of gamma interferon antigen response without active tuberculosis (principal)
CPT/HCPCS: 99203

== ENCOUNTER 2024-02-14 13:07 | Outpatient (REF) | payer MEDICARE, SELFPAY ==
[2024-02-15 04:12] LABS: HIV AB/AG Nonreactive (Nonreactive); HIV Num 1 0.05 S/CO (0.00-0.99); ~Hepatitis C Antibody Nonreactive (Nonreactive)
[2024-02-17 00:39] LABS: TS Negative Control Passed; TS Panel A 0; TS Panel B 0; TS Positive Control Passed; TSpotTB Negative (Negative)
== END 2024-02-14 13:08 | disposition home or self-care (01) ==
LOC: HO.LAB 13:07
PROVIDERS: Visit Provider Internal Medicine
DX: R76.12 Nonspecific reaction to cell mediated immunity measurement of gamma interferon antigen response without active tuberculosis (principal)
CPT/HCPCS: 36415; 86481; 86803; 87389

== ENCOUNTER 2024-02-21 14:40 | Outpatient (AMB) | payer OTHER, SELFPAY ==
--- OUTSIDE RECORDS SUMMARY | 2024-02-21 14:42 | XMS_ITS ---
Author Organization [facility] Address [address] [place], [place] [address] Care Team Providers Care Heel Varnisher Name Role Phone Vikas Victoria Primary Care Provider Unavailable Renard Casillas Unavailable [phone] Ankur Nunez Unavailable Unavailable Ayesha Silva Unavailable [phone] ALLERGIES No Known Allergies REASON FOR VISIT [...] Provider Diagnosis [facility] [address] [place] [address] 01/24/2024 Ayesha Silva Obstructive sleep apnea (adult) [...] la rosa, 02/28/2024 03:00:00 PM, [address] [place], [address], Progress Notes * Denny STANTONDOB: [birth year] (48 yo M)Acc No.[id number]:01/24/2024 Patient:??STEPHEN Denny Provider:??Ayesha Silva NP :1975?Age:48 Y?Sex:Rosemarie le Date:01/24/2024 Address:[address] [place], [place] [id number] Pcp:Samia Erickson Subjective: * Chief Complaints: * [...] to use the bathroom, naps are denied.??The [place] score today??completed by the patient is 0.??The patient denies??anxiety, excess light in the room, excess noise in the bedroom, knowledge of periodic leg movements during sleep, seizures during sleep, sleep talking, sleep walking.?[place] sleepiness scale:?Sitting and reading??0.??Watching TV??0.??Sitting inactive in [...] independently,. Children: None. Siblings: Brother, Sister,. Occupation: [employer]. Tobacco??Smoking History:??nonsmoker,??Additional Findings: Tobacco Non-User??Does not use [...] not feeling refreshed in the morning The [place] score today completed by the patient is [...] not tried it yet Naps are denied [place] sleepiness scale Sitting and reading 0 Watching [...]
--- OUTSIDE RECORDS SUMMARY | 2024-02-21 14:42 | XMS_ITS ---
Author Organization [facility] Address [address] [place], [place] [id number] Care Team Providers Care Information Management Officer Name Role Phone Vikas Victoria Primary Care Provider Unavailable Renard Casillas Unavailable [phone] Ankur Nunez Unavailable Unavailable REASON FOR VISIT Follow up Encounters Encounter Location Date Provider Diagnosis [facility] [address] [place] [address] 01/24/2024 Renard Katiei PLAN OF TREATMENT Next Appt Details Provider Name:Ayesha de la rosa, 02/28/2024 03:00:00 PM, [address] [place], [address], Progress Notes * Denny STANTONDOB: [birth year] (48 yo M)Acc No.[id number]:01/24/2024 Patient:??Denny STANTON :1975?Age:48 Y?Sex:Radha rodriguez Address:[address] [place] [address], [address] * true * Date:??
--- OUTSIDE RECORDS SUMMARY | 2024-02-21 14:42 | XMS_ITS ---
Author Organization [facility] Address [address] [place], [place] [address] Care Team Providers Care Commercial Development Manager Name Role Phone Vikas Victoria Primary Care Provider Unavailable Renard Casillas Unavailable [phone] Ankur Nunez Unavailable Unavailable REASON FOR VISIT Update [employer] Demographics Encounters Encounter Location Date Provider Diagnosis [facility] [address] [place] [address] 02/21/2024 Vikas Duffy PLAN OF TREATMENT Next Appt Details Provider Name:Ayesha de la rosa, 02/28/2024 03:00:00 PM, [address] [place], [address], Progress Notes * Denny STANTONDOB: [birth year] (48 yo M)Acc No.[id number]:02/21/2024 Patient:??Denny STANTON :1975?Age:48 Y?Sex:Radha rodriguez Address:[address], [address] * true * Date:??
--- OUTSIDE RECORDS SUMMARY | 2024-02-21 14:43 | XMS_ITS | Patient Health Record ---
Author Organization [facility] Address [address] [place], [place] [id number] Care Team Providers Care Nuclear Medicine Technician Name Role Phone Vikas Victoria Primary Care Provider Unavailable Renard Casillas Unavailable [phone] Ankur Nunez Unavailable Unavailable Ayesha Silva Unavailable [phone] ALLERGIES No Known Allergies REASON FOR REFERRAL [...] Vaccine Route Administration Date Status Comme nts Flucelvax Quadrivelant (Commerical) Unknown 04/06/2018 Administered COVID-19 Pfizer Unknown 12/02/2020 Administered COVID-19 Pfizer Unknown 12/21/2020 Administered SOCIAL HISTORY Sex Assigned At : Social History Observation Description Sex Assigned At Unknown PROBLEMS Problem Type ICD Code Onset Dates Problem Status W/U Status Risk SNOMED Code Notes Problem Obstructive sleep apnea (adult) (pediatric) (G47.33) Active confirmed Obstructive sle ep apnea syndrome (34835567) Problem Other obesity due to excess calories (E66.09) Active confirmed Obesity due to excess calories (039893560) Problem Hypersomnia (G47.10) Active confirmed 84653979 Problem Nocturnal hypoxemia (G47.34) Active confirmed 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 (996512514) Problem Mild intermittent asthma, unspecified whether complicated (J45.20) Active confirmed [id number] VITAL SIGNS Heart Rate 70 /min 01/24/2024 Respiratory Rate 16 /min 01/24/2024 Blood pressure diastolic 78 mm Hg 01/24/2024 Height 68 in 01/24/2024 Blood pressure systolic 100 mm Hg 01/24/2024 Weight 315 lbs 01/24/2024 BMI 47.89 kg/m2 01/24/2024 Encounters Encounter Location Date Provider Diagnosis [facility] [address] [place] [address] 06/07/2023 Ayesha Silva [facility] [address] [place] [address] 07/19/2023 Ayesha Ricardo [facility] [address] [place] [address] 05/10/2023 Ayesha Ricardo Obstructive sleep apnea (adult) (pediatric) G47.33 ; Hypersomnia G47.10 ; Other obesity due to excess calories E66.09 and Shortness of breath R06.02 [facility] [address] [place] [address] 10/13/2023 Ayesha Ricardo Obstructive sleep apnea (adult) (pediatric) G47.33 ; Hypersomnia G47.10 ; Other obesity due to excess calories E66.09 ; Mild intermittent asthma, unspecified whether complicated J45.20 and Shortness of breath R06.02 [facility] [address] [place] [address] 01/24/2024 Ayesha Silva Obstructive sleep apnea (adult) (pediatric) G47.33 ; Hypersomnia G47.10 ; Other obesity due to excess calories E66.09 ; Mild intermittent asthma, unspecified whether complicated J45.20 and Shortness of breath R06.02 [facility] [address] [place] [address] 05/11/2023 Ayesha Silva Shortness of breath R06.02 [facility] [address] [facility] [address] [place], [place] [id number] 07/18/2023 Renard Aghassi [facility] [address] [place] [address] 07/19/2023 Ayesha Silva [facility] [address] [place] [address] 01/24/2024 Renard Aghassi [facility] [address] [place] [address] 02/21/2024 Vikas Duffy ASSESSMENTS Encounter Date Diagnosis Assessment Notes Treatment [...] Next Appt Details Provider Name:Ayesha de la rosa 02/28/2024 03:00:00 PM, [address] [place], [address], Insurance Providers Payer Name Payer Address Payer Phone Subscriber Number Group Number Insured Name Patient Relationship to Insured Coverage Start Date Coverage End Date [employer] [address] [place] [id number] Denny Stanton Self - patient is the insured Medicaid [address] [place] [phone] [id number] Denny Stanton Self - patient is the insured MEDICAL (GENERAL) HISTORY Medical History History ICD Code Obstructive sleep apnea Depression Anxiety Bipolar disorder Mental retardation Obesity Hyperlipidemia Surgical History Surgery Date(Month/Year) Tonsillectomy/Adenoidectomy
--- NOTE | 2024-03-12 23:41 | MHC.OFFVIS ---
Intake Visit Reasons: labs results okper Allergies No Known Allergies Allergy (Verified 02/14/24 13:16) [facility] Medical History Positive QuantiFERON-TB Gold test Assessment & Plan Assessment & Plan (1) Positive QuantiFERON-TB Gold test: Comment: Positive tubercular interferon blood test. He has no risk and reported past negative TB skin test and CXR. Code(s): R76.12 - Nonspecific reaction to cell mediated immunity measurement of gamma interferon antigen response without active tuberculosis Category: Medical Plan: Told patient repeat test negative nothing to do can get biologics Coding Level of Care Code Tele Est Pt Level 2 (47487) Diagnoses Positive QuantiFERON-TB Gold test R76.12
== END 2024-02-21 14:43 | disposition home or self-care (01) ==
LOC: HO.HID 14:41
PROVIDERS: Visit Provider Internal Medicine
DX: R76.12 Nonspecific reaction to cell mediated immunity measurement of gamma interferon antigen response without active tuberculosis (principal)
CPT/HCPCS: 99212

== ENCOUNTER → 2024-02-21 14:40 | Outpatient (BNVA) | payer OTHER, SELFPAY | PROVIDERS: Visit Provider Internal Medicine ==